=== PATIENT | male | born 1975 | race Caucasian/White ===

== ENCOUNTER 2020-07-30 14:56 | Outpatient (CLI) | payer OTHER, SELFPAY ==
--- NOTE | 2020-07-30 15:00 | XRR_ITS ---
PROCEDURE INFORMATION: Exam: XR Abdomen Exam date and time: 07/30/2020 3:20 PM Age: 44 years old Clinical indication: Condition or disease; Kidney or ureter condition; Calculus (stone) in kidney; Additional info: N20.0 - calculus of kidney TECHNIQUE: Imaging protocol: XR of the abdomen. Views: Frontal supine view of the abdomen. 1 View. COMPARISON: CR XR KUB [id number] 10/25/2018 2:59 PM FINDINGS: Gastrointestinal tract: No dilation of bowel loops. Intraperitoneal space: Negative for free air. Bones/joints: Small opacity in profile with the left renal lower pole sinus area. Other findings: Moderate fecal volume. XR/XR KUB [id number] IMPRESSION: Possibly a small left kidney stone.
== END 2020-07-30 14:57 | disposition home or self-care (01) ==
LOC: RAD 15:02
PROVIDERS: PCP Family Medicine; Visit Provider Urology
DX: N20.0 Calculus of kidney (principal)
CPT/HCPCS: 74018; 81003

== ENCOUNTER 2020-08-14 15:02 | Outpatient (CLI) | payer OTHER, SELFPAY ==
--- NOTE | 2020-08-14 15:04 | XR_ITS ---
WS: [id number] KUB, AP view, 08/14/2020 Clinical Data: Urolithiasis Comparison: KUB, 07/30/2020. Findings: The fecal material and gas in the colon obscures detail over both kidneys. There is a small central c alcification overlying the left kidney which may represent a renal calculus. There are left phlebolit hs in the true pelvis. XR/XR KUB [id number] Impression: Possible left renal calculus.
== END 2020-08-14 15:03 | disposition home or self-care (01) ==
PROVIDERS: PCP Family Medicine; Visit Provider Urology
DX: N20.9 Urinary calculus, unspecified (principal)
CPT/HCPCS: 74018; 81003

== ENCOUNTER 2022-08-12 14:59 | Outpatient (CLI) | payer OTHER, SELFPAY | END 2022-08-12 15:00 | disposition home or self-care (01) | PROVIDERS: PCP Family Medicine; Visit Provider Urology | DX: N20.0 Calculus of kidney (principal) | CPT/HCPCS: 74018; 81003 ==